=== PATIENT | male | born 1970 | race Caucasian/White ===

== ENCOUNTER 2023-05-13 11:31 | Emergency (ER) | payer OTHER ==
[2023-05-13 12:13] VITALS: BP 140/106; PULSE 112; RESP 20; TEMP 98.2
--- NOTE | 2023-05-13 12:13 | ED ---
Recheck HPI - General Source: patient, EMS, RN notes reviewed Mode of arrival: EMS Limitations: no limitations <Tariq Valdivia - Last Filed: 05/13/23 12:12> <Wilmar Soler - Last Filed: 05/13/23 14:22> - General Chief Complaint: Recheck/Abnormal Lab/Rx Stated Complaint: withdrawal Time Seen by Provider: 05/13/23 12:12 - History of Present Illness Initial Comments: 52-year-old male presents emergency department from [facility] for evaluation. Patient has been there for 2 days for opiate withdrawal. Patient states he seems extreme diarrhea. He states he was sent over here and was told he is not allowed to come back. (Tariq Valdivia) Dictation was produced using [employer] dictation software. please excuse any grammatical, word or spelling errors. Chief Complaint: 52-year-old male with back pain History of Present Illness: Patient is a [id number]-year male states that he presents to the emergency department back pain. Patient allegedly just got kicked out of [facility] for not participating in the program. Patient states he slipped and fell landing on his back. States he hurt his back. He is allegedly at [facility] for opiate abuse and opiate dependence. Denies any numbness ting or paresthesias to the lower extremities. Denies any fever or saddle anesthesia. The ROS documented in this emergency department record has been reviewed and confirmed by me. Those systems with pertinent positive or negative responses have been documented in the HPI. All other systems are other negative and/or noncontributory. (Wilmar Soler) - Related Data Allergies Allergy/AdvReac Type Severity Reaction Status Date / Time Penicillins Allergy Rash/Hives Verified 05/13/23 11:57 Review of Systems ROS Other: All systems not noted in ROS Statement are negative. <Tariq Valdivia - Last Filed: 05/13/23 12:12> ROS Other: All systems not noted in ROS Statement are negative. <Wilmar Soler - Last Filed: 05/13/23 14:22> ROS Statement: Those systems with pertinent positive or pertinent negative responses have been documented in the HPI. Past Medical History Past Medical History: Asthma History of Any Multi-Drug Resistant Organisms: None Reported Past Surgical History: No Surgical Hx Reported Past Psychological History: No Psychological Hx Reported Smoking Status: Current every day smoker Past Alcohol Use History: None Reported Past Drug Use History: Marijuana, Opiates <Tariq Valdivia - Last Filed: 05/13/23 12:12> General Exam Limitations: no limitations <Tariq Valdivia - Last Filed: 05/13/23 12:12> <Wilmar Soler - Last Filed: 05/13/23 14:22> - General Exam Comments Initial Comments: Visual Physical Exam Vital signs reviewed General: Well-appearing, nontoxic, no acute distress. Head: Normocephalic, atraumatic Eyes: PERRLA, EOMI ENT: Airway patent Chest: Nonlabored breathing Skin: No visual rash, normal skin tone Neuro: Alert and oriented 3 Musculoskeletal: No gross abnormalities (Tariq Valdivia) PHYSICAL EXAM: General Impression: Alert and oriented x3, not in acute distress HEENT: Normocephalic atraumatic, extra-ocular movements intact, pupils equal and reactive to light bilaterally, mucous membranes moist. Cardiovascular: Heart regular rate and rhythm Chest: Able to complete full sentences, no retractions, no tachypnea Abdomen: abdomen soft, non-tender, non-distended, no organomegaly Musculoskeletal: Pulses present and equal in all extremities, no peripheral edema Motor: no focal deficits noted Neurological: CN II-XII grossly intact, no focal motor or sensory deficits noted Skin: Intact with no visualized rashes Psych: Normal affect and mood (Wilmar Soler) Course Vital Signs 05/13/23 11:54 Temperature 98.2 F Pulse Rate 112 H Respiratory 20 Rate Blood Pressure 140/106 Medical Decision Making <Tariq Valdivia - Last Filed: 05/13/23 12:12> <Wilmar Soler - Last Filed: 05/13/23 14:22> - Medical Decision Making I completed the quick note portion of this chart signed Tariq Valdivia PA-C (Tariq Valdivia) Was pt. sent in by a medical professional or institution (SMITHA Lawson, RECEIVING SUPERVISOR, urgent care, hospital, or jail...) When possible be specific @ -No Did you speak to anyone other than the patient for history (EMS, parent, family, police, friend...)? What history was obtained from this source @ -No Did you review nursing and triage notes (agree or disagree)? Why? @ -I reviewed and agree with nursing and triage notes Were old charts reviewed (outside hosp., previous admission, EMS record, old EKG, old radiological studies, urgent care reports/EKG's, jail records)? Report findings @ -No old charts were reviewed Differential Diagnosis (chest pain, altered mental status, abdominal pain women, abdominal pain men, vaginal bleeding, musculoskeletal, weakness, fever, dyspnea, syncope, headache, dizziness, GI bleed, back pain, seizure, CVA, palpatations, mental health)? @ -Differential Back Pain: Strain, zoster, cauda equina syndrome, epidural abscess, vertebral osteomyelitis, discitis, fracture, subluxation, disc herniation, DJD, spinal stenosis, dissection, AAA, pancreatitis, peptic ulcer disease, pyelonephritis, kidney stone, this is not meant to be an all-inclusive list. EKG interpreted by me (3pts min.). @ -None done X-rays interpreted by me (1pt min.). @ -Lumbar spine x-rays unremarkable CT interpreted by me (1pt min.). @ -None done U/S interpreted by me (1pt. min.). @ -None done What testing was considered but not performed or refused? (CT, X-rays, U/S, labs)? Why? @ -None What meds were considered but not given or refused? Why? @ -None Did you discuss the management of the patient with other professionals (professionals i.e. , PA, RECEIVING SUPERVISOR, lab, RT, psych nurse, social scientist, signal inspector, teacher, training officer, returned case inspector)? Give summary @ -No Was smoking cessation discussed for >3mins.? @ -No Was critical care preformed (if so, how long)? @ -No Were there social determinants of health that impacted care today? How? (Homelessness, low income, unemployed, alcoholism, drug addiction, transportation, low edu. Level, literacy, decrease access to med. care, longterm, rehab)? @ -No Was there de-escalation of care discussed even if they declined (Discuss DNR or withdrawal of care, Hospice)? DNR status @ -No What co-morbidities impacted this encounter? (DM, HTN, Smoking, COPD, CAD, Cancer, CVA, ARF, Chemo, Hep., AIDS, mental health diagnosis, sleep apnea, morb id obesity)? @ -None Was patient admitted / discharged? Hospital course, mention meds given and route, prescriptions, significant lab abnormalities, going to OR and other pertinent info. @ -52-year-old male presents to the emergency department with back strain. Vital signs stable. X-rays unremarkable. Patient well-appearing at bedside. Patient given analgesics and discharged. Undiagnosed new problem with uncertain prognosis? @ -No Drug Therapy requiring intensive monitoring for toxicity (Heparin, Nitro, Insulin, Cardizem)? @ -No Were any procedures done? @ -No Diagnosis/symptom? Acute, or Chronic, or Acute on Chronic? Uncomplicated (without systemic symptoms) or Complicated (systemic symptoms)? @ -Back strain Side effects of treatment? @ -No Exacerbation, Progression, or Severe Exacerbation? @ -No Poses a threat to life or bodily function? How? (Chest pain, [place], [place], pneumonia, PE, COPD, DKA, ARF, appy, cholecystitis, CVA, Diverticulitis, Homicidal, Suicidal, threat to staff... and all critical care pts) @ -No (Wilmar Soler) Disposition <Tariq Valdivia - Last Filed: 05/13/23 12:12> Is patient prescribed a controlled substance at d/c from ED?: No Time of Disposition: 14:22 <Wilmar Soler - Last Filed: 05/13/23 14:22> Clinical Impression: Back strain Disposition: HOME SELF-CARE Condition: Good Instructions (If sedation given, give patient instructions): Back Pain (ED) Referrals: None,Stated [Primary Care Provider] - 1-2 days
[2023-05-13] MEDS ORDERED: ACET/COD 300 MG/30 MG STARTER PACK 6 TAB BTL PO STA (14:21)
[2023-05-13] MEDS ORDERED: ONDANSETRON 4 MG ODT STARTER PACK 2 TAB BTL PO STA (14:36)
--- NOTE | 2023-05-13 14:47 | XR ---
EXAMINATION TYPE: XR lumbar spine 2 or 3V DATE OF EXAM: 05/13/2023 2:20 PM CLINICAL INDICATION:Male, 52 years old with history of back pain, fall; COMPARISON: None TECHNIQUE: XR lumbar spine 2 or 3V - Frontal, lateral and coned in L5-S1 lateral views of the spine. FINDINGS: No evidence of any acute osseous pathology. No evidence of loss of vertebral body height i s seen. There is grade 1 anterolisthesis of L3 on L4 alignment of the lumbar vertebral bodies. Mild s cattered disc space narrowing. Multilevel marginal osteophyte formation throughout the visualized spi ne. There is facet joint arthropathy throughout the spine. Scattered at least mild neural foraminal s tenosis. IMPRESSION: 1. No acute fracture. 2. Mild multilevel disc degeneration. 3. Grade 1 anterolisthesis of L3 on L4.
== END 2023-05-13 15:15 | disposition home or self-care (01) ==
LOC: EC 11:31
DX: S39.012A Strain of muscle, fascia and tendon of lower back, initial encounter (principal); J45.909 Unspecified asthma, uncomplicated; F17.200 Nicotine dependence, unspecified, uncomplicated; F12.90 Cannabis use, unspecified, uncomplicated; F11.90 Opioid use, unspecified, uncomplicated; Z88.0 Allergy status to penicillin; W01.0XXA Fall on same level from slipping, tripping and stumbling without subsequent striking against object, initial encounter
CPT/HCPCS: 72100; 99284; S0119